=== PATIENT | female | born 1965 | race Hispanic/Latino ===

== ENCOUNTER 2023-06-18 07:13 | Day surgery (SDC) | payer OTHER ==
[2023-06-14 11:47] LABS: BASOPHILS # (AUTO) 0.04 K/uL (0.00-0.20); BASOPHILS % (AUTO) 0.4 % (0.0-5.0); EOSINOPHILS # (AUTO) 0.68 K/uL (0.00-0.70); EOSINOPHILS % (AUTO) 6.8 % (0.0-8.0); HEMATOCRIT 25.3 % (36-48); IMMATURE GRANULOCYTE ABSOLUTE 0.05 K/uL (0-1); LYMPHOCYTES # (AUTO) 2.7 K/uL (1.0-4.8); LYMPHOCYTES % (AUTO) 26.6 % (21.0-51.0); MEAN CORPUSCULAR HEMOGLOBIN 30.4 pg (27.0-33.0); MEAN CORPUSCULAR HGB CONC 30.8 g/dL (32.0-36.0); MEAN CORPUSCULAR VOLUME 98.4 fL (79-99); MONOCYTES # (AUTO) 0.5 K/uL (0.1-1.0); MONOCYTES % (AUTO) 4.6 % (3.0-13.0); NEUTROPHILS # (AUTO) 6.1 K/uL (1.8-7.7); NEUTROPHILS % (AUTO) 61.1 % (40.0-77.0); PLATELET COUNT (AUTO) 181 K/uL (130-400); RED BLOOD CELL COUNT(AUTO) 2.57 MIL/uL (4.00-5.50); RED CELL DISTRIBUTION WIDTH 15.3 % (11.0-15.5)
[2023-06-14 12:05] VITALS: BP 199/82; PULSE 95; RESP 16
[2023-06-14 12:11] LABS: INR < 0.93 (0.85-1.15); PROTHROMBIN TIME 10.1 SEC (9.6-11.6)
[2023-06-14 12:12] LABS: PARTIAL THROMBOPLASTIN TIME 32.3 SEC (26.3-35.5)
[2023-06-14 12:16] LABS: ALBUMIN 1.8 g/dL (3.5-5.0); BILIRUBIN,TOTAL 0.2 mg/dL (0.2-1.0); POTASSIUM 5.8 mmol/L (3.5-5.1); TOTAL PROTEIN, SERUM 6.1 g/dL (6.0-8.3)
[2023-06-14 12:33] LABS: CREATININE 8.6 mg/dL (0.5-1.5)
[2023-06-18] VITALS (17 sets, daily range): BP systolic 129–164; BP diastolic 42–95; PULSE 59–85; RESP 13–20
[~2023-06-18] VITALS: Ht 154.9 cm; Wt 99.2 kg
[~2023-06-18 07:13] MED LIST: AZIT500T4 PO; BENZ200C53 PO; FERR-72 PO; FOLI0.8T22 PO; FURO20TA4 PO; GLIM4TAB36 PO; IRON INFUSION IV; LISI40TA9 PO; SIMV-46 PO; SODI650T PO; VITAMIN B12 PO
[2023-06-18] MEDS ORDERED: CEFAZOLIN SODIUM 2 GM VIAL ONE (08:33)
[2023-06-18] MEDS ORDERED: BUPIVACAINE/PF 0.5% 10ML VIAL ONE ×2 (08:34→10:42)
[2023-06-18 08:50] LABS: POTASSIUM 5.2 mmol/L (3.5-5.1)
[2023-06-18 08:52] LABS: CREATININE 8.6 mg/dL (0.5-1.5)
[2023-06-18] MEDS ORDERED: MIDAZOLAM HCL 1 MG/ML 2ML VIAL ONE (10:06)
[2023-06-18] MEDS ORDERED: PROPOFOL 10 MG/ML 20ML VIAL IV ONE ×2 (10:07→11:48)
[2023-06-18] MEDS ORDERED: GLYCOPYRROLATE 1 MG/5 ML SYRINGE ONE (10:07)
[2023-06-18] MEDS ORDERED: LIDOCAINE PF 100MG/5ML (2%) SYRINGE 5ML ONE (10:07)
[2023-06-18] MEDS ORDERED: ROCURONIUM 10MG/1ML SYR 10 MG/ML ML ONE (10:08)
[2023-06-18] MEDS ORDERED: FENTANYL CITRATE PF 50 MCG/1 ML 2ML VIAL ONE (10:08)
[2023-06-18] MEDS ORDERED: ONDANSETRON 4MG INJ ONE (11:32)
[2023-06-18] MEDS ORDERED: NEOSTIGMINE 5MG/5ML SYR IV ONE (11:51)
[2023-06-20] MEDS ORDERED: GABA-529 PO (23:37)
[2023-06-20] MEDS ORDERED: TRAM50TA4 PO (23:37)
== END 2023-06-18 14:20 | disposition home or self-care (01) ==
LOC: DAH 07:13
PROVIDERS: ATTEND Student in an Organized Health Care Education/Training Program
DX: K42.9 Umbilical hernia without obstruction or gangrene (principal); D36.7 Benign neoplasm of other specified sites; I12.0 Hypertensive chronic kidney disease with stage 5 chronic kidney disease or end stage renal disease; E11.22 Type 2 diabetes mellitus with diabetic chronic kidney disease; N18.5 Chronic kidney disease, stage 5; E78.00 Pure hypercholesterolemia, unspecified; D64.9 Anemia, unspecified; S30.851A Superficial foreign body of abdominal wall, initial encounter; X58.XXXA Exposure to other specified factors, initial encounter; Y93.89 Activity, other specified; Y92.89 Other specified places as the place of occurrence of the external cause; Y99.8 Other external cause status; Z83.3 Family history of diabetes mellitus; Z80.59 Family history of malignant neoplasm of other urinary tract organ; Z79.84 Long term (current) use of oral hypoglycemic drugs; Z79.899 Other long term (current) drug therapy
CPT/HCPCS: 80053; 85025; 85610; 85730; 87426; 36415; 93005; 49591; 49999; A6260; 74018; 80048; 82948; 88300; 88302; C1760; C1781; J2001; J2250; J2405; J2704; J2710; J3010; J3490; A4215; A4221; A4222; A4223; A4649; A4663; A6204; C1713; C1750; C1769; G0168; J0665; J0690

== ENCOUNTER 2023-10-15 13:01 | Observation (INO) | payer OTHER ==
[~2023-10-15] VITALS: Ht 154.9 cm; Wt 87.1 kg
[2023-10-15] VITALS (13 sets, daily range): BP systolic 90–204; BP diastolic 42–92; PULSE 82–95; RESP 10–14; TEMP 98
[~2023-10-15 13:01] MED LIST changes: +GABA-529 PO; -IRON INFUSION IV; +TRAM50TA4 PO
[2023-10-15 14:16] LABS: BASOPHILS # (AUTO) 0.02 K/uL (0.00-0.20); BASOPHILS % (AUTO) 0.3 % (0.0-5.0); EOSINOPHILS # (AUTO) 0.36 K/uL (0.00-0.70); EOSINOPHILS % (AUTO) 5.3 % (0.0-8.0); HEMATOCRIT 31.5 % (36-48); IMMATURE GRANULOCYTE ABSOLUTE 0.03 K/uL (0-1); LYMPHOCYTES # (AUTO) 1.1 K/uL (1.0-4.8); LYMPHOCYTES % (AUTO) 16.1 % (21.0-51.0); MEAN CORPUSCULAR HEMOGLOBIN 32.9 pg (27.0-33.0); MEAN CORPUSCULAR HGB CONC 34.6 g/dL (32.0-36.0); MEAN CORPUSCULAR VOLUME 95.2 fL (79-99); MONOCYTES # (AUTO) 0.3 K/uL (0.1-1.0); MONOCYTES % (AUTO) 4.4 % (3.0-13.0); NEUTROPHILS % (AUTO) 73.5 % (40.0-77.0); PLATELET COUNT (AUTO) 143 K/uL (130-400); RED BLOOD CELL COUNT(AUTO) 3.31 MIL/uL (4.00-5.50); RED CELL DISTRIBUTION WIDTH 13.4 % (11.0-15.5); WHITE BLOOD COUNT (AUTO) 6.8 K/uL (4.8-10.8)
[2023-10-15 14:33] LABS: ALBUMIN 2.5 g/dL (3.5-5.0); BILIRUBIN,TOTAL 0.4 mg/dL (0.2-1.0); CREATININE 7.5 mg/dL (0.5-1.5); TOTAL PROTEIN, SERUM 6.7 g/dL (6.0-8.3)
[2023-10-15 14:44] LABS: POTASSIUM 6.2 mmol/L (3.5-5.1)
[2023-10-15] MEDS: NITROGLYCERIN 1GM OINT 1 INCH/1GM TD ONE (15:55)
[2023-10-15] MEDS: NA ZIRCON CYCLOSIL(LOKELMA 10GM) PO ONE (15:55)
[2023-10-15] MEDS: INSULIN HUMULIN R 100 UNIT/ML 3ML IV ONE (15:56)
[2023-10-15] MEDS: 0.9% NACL 500ML IV.SOLN 500 ML IV SCH (18:33)
[2023-10-15] MEDS: CEFTRIAXONE 1G VIAL IVPB SCH (18:35)
[2023-10-15] MEDS: 1/2 NS 1000ML 1,000 ML IV SCH (18:43)
[2023-10-15] MEDS: INSULIN REGULAR, HUMAN 3ML 100 UNIT in 0.9%NACL 100ML 99 ML IV PRN (22:08)
[2023-10-16] VITALS (8 sets, daily range): BP systolic 107–166; BP diastolic 62–94; PULSE 82–87; RESP 12–19; TEMP 98.3; O2SAT 99
[2023-10-16] MEDS: INSULIN HUMULIN R 100 UNIT/ML 3ML SQ SCH (07:30)
[2023-10-16] MEDS ORDERED: INSULIN HUMULIN R 100 UNIT/ML 3ML SQ SCH (07:30)
[2023-10-16 07:33] LABS: BASOPHILS # (AUTO) 0.05 K/uL (0.00-0.20); BASOPHILS % (AUTO) 0.6 % (0.0-5.0); EOSINOPHILS # (AUTO) 0.33 K/uL (0.00-0.70); EOSINOPHILS % (AUTO) 4.2 % (0.0-8.0); HEMATOCRIT 27.9 % (36-48); IMMATURE GRANULOCYTE ABSOLUTE 0.03 K/uL (0-1); LYMPHOCYTES # (AUTO) 2.2 K/uL (1.0-4.8); LYMPHOCYTES % (AUTO) 27.8 % (21.0-51.0); MEAN CORPUSCULAR HEMOGLOBIN 32.1 pg (27.0-33.0); MEAN CORPUSCULAR HGB CONC 34.8 g/dL (32.0-36.0); MEAN CORPUSCULAR VOLUME 92.4 fL (79-99); MONOCYTES # (AUTO) 0.4 K/uL (0.1-1.0); MONOCYTES % (AUTO) 4.5 % (3.0-13.0); NEUTROPHILS % (AUTO) 62.5 % (40.0-77.0); PLATELET COUNT (AUTO) 162 K/uL (130-400); RED BLOOD CELL COUNT(AUTO) 3.02 MIL/uL (4.00-5.50); RED CELL DISTRIBUTION WIDTH 13.6 % (11.0-15.5); WHITE BLOOD COUNT (AUTO) 7.9 K/uL (4.8-10.8)
[2023-10-16 07:46] LABS: ALBUMIN 2.1 g/dL (3.5-5.0); BILIRUBIN,TOTAL 0.3 mg/dL (0.2-1.0); CREATININE 4.7 mg/dL (0.5-1.5); POTASSIUM 3.9 mmol/L (3.5-5.1); TOTAL PROTEIN, SERUM 5.9 g/dL (6.0-8.3)
[2023-10-16] MEDS: CLONIDINE HCL 0.1 MG TABLET PO PRN (08:46)
[2023-10-16] MEDS ORDERED: TRAMADOL HCL 50 MG TABLET PO PRN (11:30)
[2023-10-16] MEDS ORDERED: NON-FORMULARY MEDICATION 1 EACH (Ferrous Sulfate 325 MG) PO SCH (14:00)
[2023-10-16 14:34] LABS: HEPATITIS B CORE AB TOTAL Non-Reactive (Nonreactive); HEPATITIS B SURFACE ANTIBODY Non-Reactive (Reactive); HEPATITIS B SURFACE ANTIGEN Non-Reactive (Nonreactive)
[2023-10-16] MEDS: FERROUS SULFATE 325 MG TABLET.DR PO SCH (14:55)
[2023-10-16] MEDS: SIMVASTATIN 20 MG TABLET PO SCH (20:41)
[2023-10-16] MEDS: SODIUM BICARBONATE 650 MG TAB PO SCH (20:41)
[2023-10-16] MEDS: FUROSEMIDE 20 MG TABLET PO SCH (20:42)
[2023-10-16] MEDS: LISINOPRIL 40 MG TABLET PO SCH (20:42)
[2023-10-16] MEDS ORDERED: NON-FORMULARY MEDICATION 1 EACH (Simvastatin 40 MG) PO SCH (21:00)
[2023-10-17] VITALS (21 sets, daily range): BP systolic 137–177; BP diastolic 66–91; PULSE 65–92; RESP 12–19; TEMP 97.9–98.2; O2SAT 97
[2023-10-17] MEDS ORDERED: NON-FORMULARY MEDICATION 1 EACH (Folic Acid/Vitamin B Comp W-C (Rena-Vite Tablet) 0.8 MG) PO SCH (09:00)
[2023-10-17] MEDS: Vitamin B Complex/Vit C/Folic Acid PO SCH (13:22)
[2023-10-17] MEDS: GLIMEPIRIDE 2 MG TABLET PO SCH (13:22)
[2023-10-17] MEDS: INSULIN GLARGINE 100 UNITS/ML 10 ML VIAL SQ ONE (13:23)
== END 2023-10-17 15:30 | disposition home or self-care (01) ==
LOC: EDH 13:01 → EDHIP 17:48 → WSH 10-16 15:05
PROVIDERS: ADMIT Internal Medicine; ATTEND Internal Medicine
DX: I12.0 Hypertensive chronic kidney disease with stage 5 chronic kidney disease or end stage renal disease (principal); E11.22 Type 2 diabetes mellitus with diabetic chronic kidney disease; N18.6 End stage renal disease; E11.65 Type 2 diabetes mellitus with hyperglycemia; E87.5 Hyperkalemia; E87.1 Hypo-osmolality and hyponatremia; D63.1 Anemia in chronic kidney disease; E78.5 Hyperlipidemia, unspecified; Z99.2 Dependence on renal dialysis; Z79.899 Other long term (current) drug therapy
CPT/HCPCS: 96376; 96365; 96366 ×2; 99285; 82947; 80053 ×2; 83880; 85025 ×2; 82948 ×15; 86706; 87340; 86704; 82010; 36415 ×2; 71045; 93005; 90935 ×2; 96372 ×2; 96367; G0378 ×39; J0696 ×2; J1815 ×4; G0257

== ENCOUNTER 2024-02-05 07:25 | Day surgery (SDC) | payer OTHER ==
[2024-02-04 13:35] LABS: HEMATOCRIT 34.3 % (36-48); MEAN CORPUSCULAR HEMOGLOBIN 32.7 pg (27.0-33.0); MEAN CORPUSCULAR HGB CONC 32.9 g/dL (32.0-36.0); MEAN CORPUSCULAR VOLUME 99.1 fL (79-99); RED BLOOD CELL COUNT(AUTO) 3.46 MIL/uL (4.00-5.50); RED CELL DISTRIBUTION WIDTH 14.5 % (11.0-15.5); WHITE BLOOD COUNT (AUTO) 6.9 K/uL (4.8-10.8)
[2024-02-04 13:58] LABS: CREATININE 9.7 mg/dL (0.5-1.0)
[2024-02-04 14:03] LABS: INR 0.96 (0.85-1.15); PARTIAL THROMBOPLASTIN TIME 25.9 SEC (26.3-35.5); PROTHROMBIN TIME 10.2 SEC (9.6-11.6)
[2024-02-04 14:18] VITALS: BP 194/84; PULSE 78; RESP 18
[2024-02-05] VITALS (18 sets, daily range): BP systolic 123–153; BP diastolic 52–78; PULSE 61–74; RESP 12–18
[~2024-02-05] VITALS: Ht 157.5 cm; Wt 92.8 kg
[~2024-02-05 07:25] MED LIST changes: -AZIT500T4 PO; +CALC0.5C11 PO; +CALC667C10 PO; +CETI10TA57 PO; +CLON0.1T PO; -GABA-529 PO; +OLME40TA70 PO; +SODI325T PO; -SODI650T PO; -VITAMIN B12 PO
[2024-02-05] MEDS ORDERED: CEFAZOLIN SODIUM 1 GM VIAL ONE (07:33)
[2024-02-05 08:22] LABS: POTASSIUM 5.2 mmol/L (3.5-5.1)
[2024-02-05] MEDS ORDERED: PROPOFOL 10 MG/ML 20ML VIAL IV ONE (08:23)
[2024-02-05] MEDS ORDERED: FENTANYL CITRATE PF 50 MCG/1 ML 2ML VIAL ONE (08:23)
[2024-02-05] MEDS ORDERED: LIDOCAINE PF 100MG/5ML (2%) SYRINGE 5ML ONE (08:23)
[2024-02-05] MEDS: CEFAZOLIN SODIUM 2 GM VIAL IVPB ONE ×2 (08:31)
[2024-02-05] MEDS ORDERED: ROCURONIUM BROMIDE 10MG/1ML 5ML VL ONE (08:33)
[2024-02-05] MEDS: CEFAZOLIN SODIUM 2 GM VIAL ONE (08:40)
[2024-02-05] MEDS: 0.9% NACL 500ML IV.SOLN 500 ML IV ONE (08:44)
[2024-02-05] MEDS ORDERED: HYDR25TA67 PO (08:52)
[2024-02-05] MEDS ORDERED: DAPA10TA PO (08:52)
[2024-02-05] MEDS ORDERED: BUPIVACAINE/PF 0.5% 30ML VIAL ONE (09:11)
[2024-02-05] MEDS ORDERED: LIDOCAINE HCL 1% 20 ML VIAL ONE (09:11)
[2024-02-05] MEDS ORDERED: SUGAMMADEX SODIUM 200 MG/2 ML VIAL IV ONE (09:13)
[2024-02-05] MEDS: ACETAMINOPHEN 1,000 MG/100 ML VIAL IV ONE (10:10)
== END 2024-02-05 12:15 | disposition home or self-care (01) ==
LOC: DAH 07:25
PROVIDERS: ATTEND Thoracic Surgery (Cardiothoracic Vascular Surgery)
DX: I12.0 Hypertensive chronic kidney disease with stage 5 chronic kidney disease or end stage renal disease (principal); E11.22 Type 2 diabetes mellitus with diabetic chronic kidney disease; N18.6 End stage renal disease; E78.5 Hyperlipidemia, unspecified; Z83.3 Family history of diabetes mellitus; Z83.79 Family history of other diseases of the digestive system; Z80.59 Family history of malignant neoplasm of other urinary tract organ; Z79.899 Other long term (current) drug therapy; Z98.890 Other specified postprocedural states
CPT/HCPCS: 71045; 80048 ×2; 85027; 85610; 85730; 86850; 86900; 86901; 36415 ×2; 93005; 36821; 82948 ×2; A6260; J0665; A4663; J7030; A4452; J7040; J3010; J0690 ×4; J3490; J2001; J2704; J1644; A6446; A6219; A4649 ×3; C1713 ×2; A4930; A4215; A4223; A4213; A4222; A4600; G0168

== ENCOUNTER 2024-02-15 04:26 | Emergency (ER) | payer OTHER ==
[~2024-02-15] VITALS: Ht 157.5 cm; Wt 88.0 kg
[~2024-02-15 04:26] MED LIST changes: -BENZ200C53 PO; +DAPA10TA PO; -FURO20TA4 PO; +HYDR25TA67 PO; -LISI40TA9 PO; -SODI325T PO; -TRAM50TA4 PO
[2024-02-15] MEDS: CLONIDINE HCL 0.2 MG TABLET PO ONE (05:10)
[2024-02-15 05:11] LABS: BASOPHILS # (AUTO) 0.05 K/uL (0.00-0.20); BASOPHILS % (AUTO) 0.7 % (0.0-5.0); EOSINOPHILS % (AUTO) 6.8 % (0.0-8.0); HEMATOCRIT 31.6 % (36-48); IMMATURE GRANULOCYTE ABSOLUTE 0.05 K/uL (0-1); LYMPHOCYTES # (AUTO) 2.7 K/uL (1.0-4.8); MEAN CORPUSCULAR HEMOGLOBIN 31.8 pg (27.0-33.0); MEAN CORPUSCULAR HGB CONC 33.2 g/dL (32.0-36.0); MEAN CORPUSCULAR VOLUME 95.8 fL (79-99); MONOCYTES # (AUTO) 0.5 K/uL (0.1-1.0); MONOCYTES % (AUTO) 6.1 % (3.0-13.0); NEUTROPHILS # (AUTO) 3.7 K/uL (1.8-7.7); NEUTROPHILS % (AUTO) 49.7 % (40.0-77.0); NUCLEATED RED BLOOD CELLS 0.3 % (0.0-0.19); PLATELET COUNT (AUTO) 169 K/uL (130-400); RED CELL DISTRIBUTION WIDTH 14.5 % (11.0-15.5); WHITE BLOOD COUNT (AUTO) 7.4 K/uL (4.8-10.8)
[2024-02-15 05:18] LABS: ALBUMIN 3.3 g/dL (3.5-5.0); BILIRUBIN,TOTAL 0.4 mg/dL (0.2-1.0); CREATININE 7.2 mg/dL (0.5-1.0); POTASSIUM 4.9 mmol/L (3.5-5.1); TOTAL PROTEIN, SERUM 7.7 g/dL (6.0-8.3)
[2024-02-15 06:38] VITALS: BP 142/53; PULSE 63; RESP 16; O2SAT 96
[2024-02-15] MEDS: INSULIN HUMULIN R 100 UNIT/ML 3ML IV ONE (06:42)
== END 2024-02-15 06:47 | disposition home or self-care (01) ==
LOC: EDH 04:26
DX: E11.65 Type 2 diabetes mellitus with hyperglycemia (principal); E11.22 Type 2 diabetes mellitus with diabetic chronic kidney disease; I12.0 Hypertensive chronic kidney disease with stage 5 chronic kidney disease or end stage renal disease; N18.6 End stage renal disease; D64.9 Anemia, unspecified; E78.00 Pure hypercholesterolemia, unspecified; E66.9 Obesity, unspecified; Z99.2 Dependence on renal dialysis; Z98.890 Other specified postprocedural states; Z79.899 Other long term (current) drug therapy; Z68.30 Body mass index [BMI] 30.0-30.9, adult
CPT/HCPCS: 99284; 96374; 84484; 80053; 85025; 82948; 36415; 93005; J1815

== ENCOUNTER 2024-03-17 18:56 | Emergency (ER) | payer OTHER ==
[~2024-03-17] VITALS: Ht 154.9 cm; Wt 90.7 kg
[2024-03-17] MEDS ORDERED: BUTA-271 PO (19:19)
[2024-03-17 19:28] VITALS: BP 150/67; PULSE 86; RESP 16; O2SAT 98
[2024-03-17] MEDS: ACETAMINOPHEN WITH CODEINE 1 TAB TAB PO ONE (19:31)
== END 2024-03-17 19:51 | disposition home or self-care (01) ==
LOC: EDH 18:56
DX: G44.209 Tension-type headache, unspecified, not intractable (principal); E11.9 Type 2 diabetes mellitus without complications; E78.00 Pure hypercholesterolemia, unspecified; I10 Essential (primary) hypertension; Z79.899 Other long term (current) drug therapy; Z98.890 Other specified postprocedural states

== ENCOUNTER 2024-03-25 12:48 | Emergency (ER) | payer OTHER ==
[~2024-03-25] VITALS: Ht 154.9 cm; Wt 35.4 kg
[~2024-03-25 12:48] MED LIST changes: -CALC667C10 PO; -CETI10TA57 PO
[2024-03-25 13:15] VITALS: BP 159/54; PULSE 78; RESP 16
[2024-03-25 15:12] LABS: BASOPHILS # (AUTO) 0.02 K/uL (0.00-0.20); BASOPHILS % (AUTO) 0.3 % (0.0-5.0); EOSINOPHILS # (AUTO) 0.27 K/uL (0.00-0.70); EOSINOPHILS % (AUTO) 3.9 % (0.0-8.0); HEMATOCRIT 32.3 % (36-48); IMMATURE GRANULOCYTE ABSOLUTE 0.03 K/uL (0-1); LYMPHOCYTES # (AUTO) 0.9 K/uL (1.0-4.8); LYMPHOCYTES % (AUTO) 13.4 % (21.0-51.0); MEAN CORPUSCULAR HGB CONC 33.1 g/dL (32.0-36.0); MEAN CORPUSCULAR VOLUME 99.7 fL (79-99); MONOCYTES # (AUTO) 0.5 K/uL (0.1-1.0); NEUTROPHILS # (AUTO) 5.2 K/uL (1.8-7.7); PLATELET COUNT (AUTO) 134 K/uL (130-400); RED BLOOD CELL COUNT(AUTO) 3.24 MIL/uL (4.00-5.50); WHITE BLOOD COUNT (AUTO) 6.9 K/uL (4.8-10.8)
[2024-03-25 15:38] LABS: ALBUMIN 2.8 g/dL (3.5-5.0); BILIRUBIN,TOTAL 0.3 mg/dL (0.2-1.0); CREATININE 7.3 mg/dL (0.5-1.0); POTASSIUM 4.3 mmol/L (3.5-5.1); TOTAL PROTEIN, SERUM 7.9 g/dL (6.0-8.3)
[2024-03-25] MEDS: INSULIN HUMULIN R 100 UNIT/ML 3ML IV ONE (15:42)
[2024-03-25 16:20] LABS: ABG BASE EXCESS -3.8 mmol/L (-2.0-3.0); ABG HCO3 20.4 mmol/L (21.0-28.0); ABG OXYGEN SATURATION 97.4 % (95.0-99.0); ABG PCO2 35 mmHg (32-45); ABG PH 7.385 (7.35-7.450); DEVICE COMMENT RR MARLEN FNP; PO2, ARTERIAL BG 97.8 mmHg (83.0-108.0); VENT MODE, BG RA (ROOM AIR)
[2024-03-25 16:29] LABS: APPEARANCE,URINE CLEAR (CLEAR); BILIRUBIN,URINE NEGATIVE (NEGATIVE); COLOR,URINE LIGHT-YELLOW (YELLOW); GLUCOSE, URINE (UA) >=1000 mg/dL (NEGATIVE); KETONES,URINE NEGATIVE (NEGATIVE); LEUKOCYTE ESTERASE ,URINE NEGATIVE Leu/uL (NEGATIVE); NITRATE,URINE NEGATIVE (NEGATIVE); OCCULT BLOOD,URINE SMALL (NEGATIVE); PROTEIN,URINE 600 mg/dL (NEGATIVE); UROBILINOGEN,URINE 0.2 mg/dL (0.2-1.0)
[2024-03-25 16:30] LABS: ADD UA MICROSCOPIC YES
[2024-03-25] MEDS: 0.9% NACL 500ML IV.SOLN 500 ML IV ONE (18:48)
[2024-03-25 19:09] LABS: BACTERIA,URINE RARE /HPF (None Seen); MUCUS,URINE RARE LPF (None Seen); NON-SQUAMOUS EPITHELIAL CELL 1 /HPF (0-2); SQUAMOUS EPITHELIAL CELL,UR MANY /HPF (0-2)
== END 2024-03-25 19:37 | disposition home or self-care (01) ==
LOC: EDH 12:48
DX: E11.65 Type 2 diabetes mellitus with hyperglycemia (principal); I12.0 Hypertensive chronic kidney disease with stage 5 chronic kidney disease or end stage renal disease; E11.22 Type 2 diabetes mellitus with diabetic chronic kidney disease; N18.6 End stage renal disease; Z99.2 Dependence on renal dialysis; E78.00 Pure hypercholesterolemia, unspecified; E87.1 Hypo-osmolality and hyponatremia; Z79.899 Other long term (current) drug therapy; Z98.890 Other specified postprocedural states
CPT/HCPCS: 99285; 96374; 71045; 80053; 82803; 85025; 87086; 82948 ×3; 82010; 81001; 36415; 93005; 36600; J1815; J7040

== ENCOUNTER 2024-04-11 02:23 | Inpatient (IN) | payer OTHER ==
[~2024-04-11] VITALS: Ht 154.9 cm; Wt 89.8 kg
[2024-04-11] VITALS (20 sets, daily range): BP systolic 144–206; BP diastolic 64–83; PULSE 64–84; RESP 14–19; TEMP 97.7–98.3; O2SAT 98
[2024-04-11 02:51] LABS: BASOPHILS # (AUTO) 0.05 K/uL (0.00-0.20); BASOPHILS % (AUTO) 0.6 % (0.0-5.0); HEMATOCRIT 30.1 % (36-48); IMMATURE GRANULOCYTE ABSOLUTE 0.03 K/uL (0-1); LYMPHOCYTES # (AUTO) 2.3 K/uL (1.0-4.8); LYMPHOCYTES % (AUTO) 29.2 % (21.0-51.0); MEAN CORPUSCULAR HEMOGLOBIN 32.6 pg (27.0-33.0); MEAN CORPUSCULAR HGB CONC 32.6 g/dL (32.0-36.0); MONOCYTES # (AUTO) 0.5 K/uL (0.1-1.0); MONOCYTES % (AUTO) 6.7 % (3.0-13.0); NEUTROPHILS # (AUTO) 4.7 K/uL (1.8-7.7); NEUTROPHILS % (AUTO) 58.1 % (40.0-77.0); PLATELET COUNT (AUTO) 181 K/uL (130-400); RED BLOOD CELL COUNT(AUTO) 3.01 MIL/uL (4.00-5.50); RED CELL DISTRIBUTION WIDTH 13.7 % (11.0-15.5)
[2024-04-11 03:04] LABS: CREATININE 7.6 mg/dL (0.5-1.0); POTASSIUM 4.9 mmol/L (3.5-5.1)
[2024-04-11] MEDS: LACTATED RINGERS 1000ML 1,000 ML IV ONE (04:03)
[2024-04-11] MEDS: morPHINE 4 MG SYG IVP ONE (06:14)
[2024-04-11] MEDS ORDERED: FERR-72 PO (06:44)
[2024-04-11] MEDS ORDERED: HYDR25TA67 PO (06:44)
[2024-04-11] MEDS ORDERED: DAPA10TA PO (06:44)
[2024-04-11] MEDS ORDERED: INSU100I26 SQ (06:44)
[2024-04-11] MEDS: DEXTROSE 5 %-0.45 % NACL 1,000 ML IV SCH ×2 (06:46→07:10)
[2024-04-11 07:04] LABS: CHOLESTEROL 153 mg/dL (<200); HDL CHOLESTEROL 55 mg/dL (35-85); LDL DIRECT 79 mg/dL (0-99); TRIGLYCERIDES 93 mg/dL (30-200)
[2024-04-11] MEDS: ondanSETRON 4MG INJ IVP PRN (12:07)
[2024-04-11] MEDS: HEParin 5,000 UNIT VIAL IRRIG SCH (16:00)
[2024-04-11] MEDS ORDERED: NON-FORMULARY MEDICATION 1 EACH (Simvastatin 40 MG) PO SCH (21:00)
[2024-04-11] MEDS: simVASTatin 20 MG TABLET PO SCH (22:23)
[2024-04-11] MEDS: hydroMORPHone 0.5 MG SYG (0.5MG/0.5ML) IVP PRN (22:27)
[2024-04-12] VITALS (7 sets, daily range): BP systolic 140–188; BP diastolic 69–79; PULSE 77–81; RESP 16–20; TEMP 98.1–98.3; O2SAT 98
[2024-04-12 08:05] LABS: POTASSIUM 4.8 mmol/L (3.5-5.1)
[2024-04-12] MEDS ORDERED: NON-FORMULARY MEDICATION 1 EACH (Glimepiride 4 MG) PO SCH (09:00)
[2024-04-12] MEDS ORDERED: INSULIN GLARGINE HUM REC ANLOG SQ SCH (09:00)
[2024-04-12] MEDS ORDERED: NON-FORMULARY MEDICATION 1 EACH (Ferrous Sulfate 325 MG) PO SCH (09:00)
[2024-04-12] MEDS ORDERED: OLMESARTAN MEDOXOMIL 40 MG PO SCH (09:00)
[2024-04-12] MEDS: INSULIN GLARgine 100 UNITS/ML 10 ML VIAL SQ SCH (09:00)
[2024-04-12] MEDS ORDERED: [UNRECOGNIZED DRUG - OTHER] SQ SCH (09:00)
[2024-04-12] MEDS ORDERED: NON-FORMULARY MEDICATION 1 EACH (Folic Acid/Vitamin B Comp W-C (Rena-Vite Tablet) 0.8 MG) PO SCH (09:00)
[2024-04-12] MEDS: CALCITRIOL 0.5 MCG PO SCH (09:00)
[2024-04-12] MEDS: GLIMEPIRIDE 2 MG TABLET PO SCH (09:00)
[2024-04-12] MEDS: LoSARTan 100 MG TABLET PO SCH (10:20)
[2024-04-12] MEDS: Vitamin B Complex/Vit C/Folic Acid PO SCH (10:21)
[2024-04-12] MEDS: hydrALAZine 25MG TABLET PO SCH (10:21)
[2024-04-12] MEDS: FERROUS SULFATE 325 MG TABLET.DR PO SCH (10:21)
[2024-04-12] MEDS: cloNIDine HCL 0.1 MG TABLET PO PRN (12:44)
[2024-04-12 14:35] LABS: HEPATITIS B SURFACE ANTIGEN Non-Reactive (Nonreactive)
[2024-04-12 14:43] LABS: HEPATITIS B CORE AB TOTAL Non-Reactive (Nonreactive); HEPATITIS C ANTIBODY Non-Reactive (Nonreactive)
[2024-04-12 14:44] LABS: HEPATITIS B SURFACE ANTIBODY Positive (Reactive)
[2024-04-13] VITALS (7 sets, daily range): BP systolic 141–186; BP diastolic 54–79; PULSE 70–83; RESP 16; TEMP 97.4–98.6; O2SAT 97–98
[2024-04-13] MEDS: acetaMINOPHEN WITH coDEINE 1 TAB TAB PO PRN (16:12)
[2024-04-13] MEDS: doCUSate SODIUM 100 MG CAP PO SCH (19:49)
[2024-04-13] MEDS: DEXTROSE 50%-WATER 50 ML DISP.SYRIN IV ONE (21:25)
[2024-04-14] VITALS (22 sets, daily range): BP systolic 152–178; BP diastolic 65–89; PULSE 65–79; RESP 14–20; TEMP 98–98.7; O2SAT 95–98
[2024-04-14] MEDS ORDERED: GLUCAGON 1MG KIT 1 MG ML IM PRN (02:00)
[2024-04-14] MEDS: DEXTROSE 50%-WATER 50 ML DISP.SYRIN IV PRN (05:11)
[2024-04-14 05:33] LABS: BASOPHILS # (AUTO) 0.02 K/uL (0.00-0.20); BASOPHILS % (AUTO) 0.3 % (0.0-5.0); EOSINOPHILS # (AUTO) 0.32 K/uL (0.00-0.70); EOSINOPHILS % (AUTO) 4.6 % (0.0-8.0); HEMATOCRIT 32.4 % (36-48); IMMATURE GRANULOCYTE ABSOLUTE 0.02 K/uL (0-1); LYMPHOCYTES # (AUTO) 2.8 K/uL (1.0-4.8); LYMPHOCYTES % (AUTO) 39.2 % (21.0-51.0); MEAN CORPUSCULAR HEMOGLOBIN 33.1 pg (27.0-33.0); MEAN CORPUSCULAR HGB CONC 32.4 g/dL (32.0-36.0); MEAN CORPUSCULAR VOLUME 102.2 fL (79-99); MONOCYTES # (AUTO) 0.5 K/uL (0.1-1.0); MONOCYTES % (AUTO) 7.3 % (3.0-13.0); NEUTROPHILS # (AUTO) 3.4 K/uL (1.8-7.7); NEUTROPHILS % (AUTO) 48.3 % (40.0-77.0); PLATELET COUNT (AUTO) 196 K/uL (130-400); RED BLOOD CELL COUNT(AUTO) 3.17 MIL/uL (4.00-5.50); RED CELL DISTRIBUTION WIDTH 14.1 % (11.0-15.5)
[2024-04-14] MEDS: DEXTROSE 5%-WATER 1,000 ML IV SCH (09:23)
[2024-04-14] MEDS: 0.9%NACL 1000ML 1,000 ML IV SCH (11:34)
[2024-04-14] MEDS: EPOETIN ALFA-EPBX (NON-ESRD) 10,000 UNIT/ML VIAL SQ SCH (19:51)
[2024-04-15] VITALS (8 sets, daily range): BP systolic 114–179; BP diastolic 71–87; PULSE 68–80; RESP 17–20; TEMP 97.8–98.8; O2SAT 95
[2024-04-15 05:27] LABS: CREATININE 6.9 mg/dL (0.5-1.0); POTASSIUM 5.1 mmol/L (3.5-5.1)
[2024-04-15] MEDS ORDERED: DEXTROSE 5 %-0.45 % NACL 1,000 ML IV SCH (07:30)
[2024-04-15] MEDS: LACTULOSE 20 GM/30 ML UDCUP PO SCH (09:45)
[2024-04-15] MEDS ORDERED: acetaMINOPHEN 325 MG TAB PO PRN (13:00)
[2024-04-15 15:16] LABS: ALBUMIN 2.9 g/dL (3.5-5.0); BILIRUBIN,DIRECT 0.1 mg/dL (0.0-0.3); BILIRUBIN,TOTAL 0.5 mg/dL (0.2-1.0)
[2024-04-16] VITALS (38 sets, daily range): BP systolic 110–181; BP diastolic 43–91; PULSE 69–91; RESP 14–19; TEMP 97.3–98.4; O2SAT 95–97
[2024-04-16] MEDS: 0.9%NACL 1000ML 1,000 ML IV ONE (06:07)
[2024-04-16 06:12] LABS: BASOPHILS # (AUTO) 0.05 K/uL (0.00-0.20); BASOPHILS % (AUTO) 0.5 % (0.0-5.0); EOSINOPHILS # (AUTO) 0.53 K/uL (0.00-0.70); EOSINOPHILS % (AUTO) 5.7 % (0.0-8.0); HEMATOCRIT 36.4 % (36-48); IMMATURE GRANULOCYTE ABSOLUTE 0.03 K/uL (0-1); LYMPHOCYTES # (AUTO) 2.6 K/uL (1.0-4.8); LYMPHOCYTES % (AUTO) 27.7 % (21.0-51.0); MEAN CORPUSCULAR HEMOGLOBIN 33.4 pg (27.0-33.0); MEAN CORPUSCULAR VOLUME 101.4 fL (79-99); MONOCYTES # (AUTO) 0.6 K/uL (0.1-1.0); MONOCYTES % (AUTO) 6.4 % (3.0-13.0); NEUTROPHILS # (AUTO) 5.5 K/uL (1.8-7.7); NEUTROPHILS % (AUTO) 59.4 % (40.0-77.0); PLATELET COUNT (AUTO) 245 K/uL (130-400); RED BLOOD CELL COUNT(AUTO) 3.59 MIL/uL (4.00-5.50); RED CELL DISTRIBUTION WIDTH 14.7 % (11.0-15.5); WHITE BLOOD COUNT (AUTO) 9.3 K/uL (4.8-10.8)
[2024-04-16 06:24] LABS: ALBUMIN 3.5 g/dL (3.5-5.0); BILIRUBIN,TOTAL 0.6 mg/dL (0.2-1.0); POTASSIUM 4.3 mmol/L (3.5-5.1)
[2024-04-16 06:29] LABS: CREATININE 8.6 mg/dL (0.5-1.0)
[2024-04-16] MEDS: LACTULOSE 20 GM/30 ML UDCUP PO SCH (09:00)
[2024-04-16] MEDS ORDERED: proPOFol 10 MG/ML 20ML VIAL IV ONE (10:26)
[2024-04-16] MEDS ORDERED: LIDOCAINE HCL 400MG/20ML VIAL ONE (10:26)
[2024-04-16] MEDS: DEXTROSE 50%-WATER 50 ML DISP.SYRIN IV ONE (11:21)
[2024-04-17 03:59] VITALS: BP 152/61; PULSE 84; RESP 17; TEMP 98.2
[2024-04-17 04:38] LABS: HEMATOCRIT 29.1 % (36-48); MEAN CORPUSCULAR HEMOGLOBIN 33.4 pg (27.0-33.0); MEAN CORPUSCULAR VOLUME 101.4 fL (79-99); RED BLOOD CELL COUNT(AUTO) 2.87 MIL/uL (4.00-5.50); RED CELL DISTRIBUTION WIDTH 14.7 % (11.0-15.5); WHITE BLOOD COUNT (AUTO) 5.5 K/uL (4.8-10.8)
[2024-04-17 04:47] LABS: CREATININE 6.1 mg/dL (0.5-1.0); POTASSIUM 4.3 mmol/L (3.5-5.1)
[2024-04-17 08:10] VITALS: BP 144/60; PULSE 86; RESP 20; TEMP 97.8
[2024-04-17 08:57] VITALS: O2SAT 96
[2024-04-17 11:10] VITALS: BP 162/66; PULSE 97; RESP 20; TEMP 97.6
== END 2024-04-17 13:42 | disposition home or self-care (01) | DRG 438 ==
LOC: EDH 02:23 → EDHIP 06:31 → 3AH 08:00
PROVIDERS: ADMIT Internal Medicine; ATTEND Internal Medicine
PROC: 0DB68ZX Excision of Stomach, Via Natural or Artificial Opening Endoscopic, Diagnostic (ICD-10-PCS; principal; 2024-04-16)
DX: K85.90 Acute pancreatitis without necrosis or infection, unspecified (principal); N18.6 End stage renal disease; E87.1 Hypo-osmolality and hyponatremia; I12.0 Hypertensive chronic kidney disease with stage 5 chronic kidney disease or end stage renal disease; E11.22 Type 2 diabetes mellitus with diabetic chronic kidney disease; D63.1 Anemia in chronic kidney disease; E78.00 Pure hypercholesterolemia, unspecified; E11.649 Type 2 diabetes mellitus with hypoglycemia without coma; I25.10 Atherosclerotic heart disease of native coronary artery without angina pectoris; K59.00 Constipation, unspecified; E66.01 Morbid (severe) obesity due to excess calories; K29.50 Unspecified chronic gastritis without bleeding; Z99.2 Dependence on renal dialysis; Z90.49 Acquired absence of other specified parts of digestive tract; Z82.49 Family history of ischemic heart disease and other diseases of the circulatory system; Z83.3 Family history of diabetes mellitus; Z68.37 Body mass index [BMI] 37.0-37.9, adult
CPT/HCPCS: 36415; 43239; 74176; 76705; 80048; 80053; 80061; 80076; 82948; 83690; 83880; 85025; 85027; 86704; 86706; 86803; 87340; 88305; 88312; 90935; 96365; 96375; G0378; J1170; J1644; J2270; J2405; J2704; J3490; J7030; J7042; J7070; J7120; A4620; A7002; Q5106

== ENCOUNTER 2024-08-03 20:43 | Emergency (ER) | payer OTHER ==
[~2024-08-03] VITALS: Ht 154.9 cm; Wt 92.5 kg
[~2024-08-03 20:43] MED LIST changes: +INSU100I26 SQ
--- NOTE | 2024-08-03 21:42 | HMCIMG ---
CT HEAD/BRAIN W/O CONTRAST HISTORY: Headaches COMPARISON: None TECHNIQUE: Multiple sequential axial images of the head were obtained from the base of the skull through vertex. Patient was not given contrast through intravenous route. FINDINGS: The ventricles and extraventricular CSF spaces are dilated consistent with cerebral atrophy. Nonspecific white matter changes seen. Dystrophic calcifications are seen in the right parietal lobe. There is no midline shift, mass effect or herniation. No acute intracranial bleed is seen. Visualized portion of the paranasal sinuses are grossly within normal limits. IMPRESSION: 1. No acute intracranial bleed is seen. 2. Atrophy with white matter changes. CT was performed with one or more following dose reduction techniques: automated exposure control, adjustment of the mA and kv according to patient's size, or use of a iterative reconstruction technique.
--- NOTE | 2024-08-03 22:31 | ERN ---
ED Note History of Present Illness Stated Complaint: HEADACHE Chief Complaint: Headache Time Seen by MD: 20:58 Time Seen by Midlevel: 20:58 Dictation: The patient is a 59-year-old female with a history of ESRD on dialysis, hyperlipidemia, hypertension who presents to the emergency department with a frontal headache onset 5:00 p.m. after dialysis. Patient reports she gets heada ches3 times a week usually after dialysis. Patient of Dr. Gomez. Patient denies any head trauma, nausea or vomiting, fevers. Patient reports she had a similar episodes a few months ago and was prescribed Fiorinal which helped for her headaches but has run out of prescription. Allergies: Coded Allergies: No Known Drug Allergies (Unverified Allergy, Unknown, 06/14/23) Home Meds Reported Medications Insulin Glargine,Hum.rec.anlog (Basaglar Kwikpen U-100) 100 Unit/Ml (3 Ml) Insuln.pen, 50 UNITS SQ DAILY 04/11/24 Hydralazine HCl (Hydralazine HCl) 25 Mg Tablet, 25 MG PO DAILY, TAB 04/11/24 Dapagliflozin Propanediol (Farxiga) 10 Mg Tablet, 10 MG PO DAILY, TAB 04/11/24 Ferrous Sulfate (Ferrous Sulfate) 325 Mg (65 Mg Iron) Tablet, 325 MG PO DAILY, TAB 04/11/24 Dapagliflozin Propanediol (Farxiga) 10 Mg Tablet, 10 MG PO HS, TAB 02/05/24 Hydralazine HCl (Hydralazine HCl) 25 Mg Tablet, 25 MG PO TID, TAB 02/05/24 Olmesartan Medoxomil (Benicar) 40 Mg Tablet, 40 MG PO DAILY, TAB 11/25/23 Clonidine HCl (Clonidine HCl) 0.1 Mg Tablet, 0.1 MG PO QIDP PRN for IF SBP GREATER THAN 180, TAB 11/25/23 Calcitriol (Calcitriol) 0.5 Mcg Capsule, 0.5 MCG PO DAILY, CAP 11/25/23 Folic Acid/Vitamin B Comp W-C (Ryanne-Jeane Tablet) 0.8 Mg Tablet, 0.8 MG PO DAILY, TAB 06/14/23 Glimepiride (Glimepiride) 4 Mg Tablet, 4 MG PO AM, TAB 06/14/23 Ferrous Sulfate (Ferrous Sulfate) 325 Mg (65 Mg Iron) Tablet, 325 MG PO TID, TAB 06/14/23 Simvastatin (Simvastatin) 40 Mg Tablet, 40 MG PO HS, TAB 06/14/23 Past Medical History Past Medical History: Diabetes-Type II, High Cholesterol, Heart Disease, Hypertension, Renal Disese, Renal Failure Surgical History: Cholecystectomy Surgical History Other: HERNIA REPAIR, PORT-A-CATH History: Not Applicable RN Note Reviewed/Agreed w/PFSH: Yes Review of System Dictation Constitutional: Negative for fever,chills, and weight loss Eyes: Negative for injury, pain,redness, and discharge ENT: Negative for injury,pain or swelling Cardiovascular: Negative for chest pain, palpitations, and edema Respiratory: Negative for shortness of breath, cough, and wheezing, Abdomen/GI: Negative for abdominal pain, nausea, vomiting, diarrhea, and constipation Back: Negative for injury and pain : Negative for injury, bleeding and discharge MS/Extremity: Negative for injury and deformity Skin: Negative for rash, and discoloration Neuro: Negative for weakness, numbness, tingling, and seizure positive for headache Psych: Negative for suicide ideation, homicidal ideation, and hallucinations Initial Vital Sign VS Vital Signs Date Time Temp Pulse Resp B/P (MAP) Pulse Ox O2 Delivery O2 Flow Rate FiO2 08/03/24 20:44 97.2 90 20 171/70 98 Room Air 08/03/24 23:05 0 21 Physical Exam Dictation Vital Signs reviewed General Appearance: Alert, oriented x 3, no acute distress, well developed, nourished. Head and Face: non-traumatic. Eyes: PERRL, pink conjunctivas, eyelid no trauma, anterior chamber with arcus senilis. Ears: Pinnas intact and no signs of trauma or erythema ear canals clear and no discharge TM no erythema Nose: No discharge, no bleeding. Oropharynx: Mouth normal, tongue pink. pharynx clear,no erythema, tonsils no exudates, no abscesses noted, mucous membrane moist Neck: Supple, non-tender, no thyromegaly, no masses, no JVD, no bruits Breast:Deferred Chest:No tenderness, no crepitus, no paradoxical movement, no retractions Lungs:Clear, well-ventilated, symmetric, no rales, no wheezing, no rhonchi, no stridor, good breath sounds bilaterally Heart: Regular rate, regular rhythm, no murmur, no gallops Vascular: no peripheral edema, Abdomen: Soft, positive bowel sounds, nondistended, no guarding, nontender, no rebound, no masses no hepatomegaly, no splenomegaly, no Pathak's sign, no hernias. Rectal: Deferred Genital: Deferred Neurological: Normal speech, motor function intact, sensory function intact , no facial droop no slurred speech, upper extremities equal and strength, lower extremities equal and strength Musculoskeletal: Neck nontender, full range of motion, back nontender, full range of motion, Extremities: nontender, full range of motion Skin: Color pink, dry, no turgor, no rash, no lacerations, no abrasions, no contusions. Lymphatic: Deferred Results (Laboratory/Radiology) Laboratory/Radiology Laboratory Tests Test 08/03/24 22:17 White Blood Count 7.1 K/uL (4.8-10.8) Red Blood Count 3.46 MIL/uL (4.00-5.50) L Hemoglobin 12.1 g/dL (12.0-16.0) Hematocrit 35.6 % (36-48) L Mean Corpuscular Volume 102.9 fL (79-99) H Mean Corpuscular Hemoglobin 35.0 pg (27.0-33.0) H Mean Corpuscular Hemoglobin Concent 34.0 g/dL (32.0-36.0) Red Cell Distribution Width 14.6 % (11.0-15.5) Platelet Count 176 K/uL (130-400) Mean Platelet Volume 11.0 fL (7.5-10.5) H Immature Granulocyte % (Auto) 0.3 % (0-1) Neutrophils (%) (Auto) 57.0 % (40.0-77.0) Lymphocytes (%) (Auto) 29.8 % (21.0-51.0) Monocytes (%) (Auto) 7.0 % (3.0-13.0) Eosinophils (%) (Auto) 5.2 % (0.0-8.0) Basophils (%) (Auto) 0.7 % (0.0-5.0) Neutrophils # (Auto) 4.1 K/uL (1.8-7.7) Lymphocytes # (Auto) 2.1 K/uL (1.0-4.8) Monocytes # (Auto) 0.5 K/uL (0.1-1.0) Eosinophils # (Auto) 0.37 K/uL (0.00-0.70) Basophils # (Auto) 0.05 K/uL (0.00-0.20) Absolute Immature Granulocyte (auto 0.02 K/uL (0-1) Nucleated Red Blood Cells 0.0 % (0.0-0.19) Sodium Level 133 mmol/L (136-145) L Potassium Level 4.6 mmol/L (3.5-5.1) Chloride Level 92 mmol/L (101-111) L Carbon Dioxide Level 33 mmol/L (21-32) H Blood Urea Nitrogen 38 mg/dL (7-18) H Creatinine 5.6 mg/dL (0.5-1.0) H Glomerular Filtration Rate Calc 8 mL/min (>90) Random Glucose 280 mg/dL (70-105) H Total Calcium 8.7 mg/dL (8.5-10.1) REASON: headache ORDERING PHYSICIAN: GINI TURPIN PROCEDURE: HEAD WO - CT HEAD/BRAIN W/O CONTRAST CT HEAD/BRAIN W/O CONTRAST HISTORY: Headaches COMPARISON: None TECHNIQUE: Multiple sequential axial images of the head were obtained from the base of the skull through vertex. Patient was not given contrast through intravenous route. FINDINGS: The ventricles and extraventricular CSF spaces are dilated consistent with cerebral atrophy. Nonspecific white matter changes seen. Dystrophic calcifications are seen in the right parietal lobe. There is no midline shift, mass effect or herniation. No acute intracranial bleed is seen. Visualized portion of the paranasal sinuses are grossly within normal limits. IMPRESSION: 1. No acute intracranial bleed is seen. 2. Atrophy with white matter changes. CT was performed with one or more following dose reduction techniques: automated exposure control, adjustment of the mA and kv according to patient's size, or use of a iterative reconstruction technique. Labs Reviewed?: Yes ED Course ED Course Orders Procedure Category Date Status Time Cbc With Differential LAB 08/03/24 Complete 21:17 Basic Metabolic Panel LAB 08/03/24 Complete 21:17 Ct Head/Brain W/O CT 08/03/24 Resulted Contrast 21:17 Acetaminophen 500mg PHA 08/03/24 Complete Tab (Tylenol 500mg T 21:30 Current Medications Medications (Trade) Dose Ordered Sig/Rafi Route PRN Reason Start Time Stop Time Status Last Admin Dose Admin Acetaminophen (TYLenol 500MG TAB) 1,000 mg ONCE ONCE PO 08/03/24 21:30 08/03/24 21:31 DC 08/03/24 23:04 Vital Signs Date Time Temp Pulse Resp B/P (MAP) Pulse Ox O2 Delivery O2 Flow Rate FiO2 08/03/24 23:05 98.4 76 17 153/70 98 Room Air* 0 21 08/03/24 20:44 97.2 90 20 171/70 98 Room Air Medical Decision Making [facility] The patient is a 59-year-old female with a history of ESRD on dialysis, hyperlipidemia, hypertension who presents to the emergency department with a frontal headache onset 5:00 p.m. after dialysis. Patient reports she gets headaches3 times a week usually after dialysis. Patient of Dr. Gomez. Patient denies any head trauma, nausea or vomiting, fevers. Patient reports she had a similar episodes a few months ago and was prescribed Fiorinal which helped for her headaches but has run out of prescription. CBC showed no leukocytosis, no anemia, chemistry showed mild hyponatremia, hypochloremia, elevated blood glucose no DKA. Patient reports she is pending to take her night diabetic medication. CT with no acute intracranial bleeding. Patient will be discharged to follow up with PCP. Patient in no acute distress. Remains neurologically intact. Differential diagnosis: Electrolyte imbalance, dehydration, intracerebral hemorrhage Need for hospitalization: Patient does not meet criteria for hospitalization. There are no social concerns with this patient. DX & DISP Disposition: Discharge Departure Impression: Primary Impression: Acute tension headache Additional Impressions: Uncontrolled diabetes mellitus with hyperglycemia, Hyponatremia, Hypochloremia, ESRD (end stage renal disease) Condition: Stable Scripts Butalb/Acetaminophen/Caffeine (Gfubkp-Quubpjcd-Tjmk 50-325-40) 50 Mg-325 Mg-40 Mg Tablet 1-2 TAB PO Q4HPRN PRN for HEADACHE, #15 TAB 0 Refills Max 6 tablets per 24 hrs. Prov: GINI TURPIN MANAGER MONITORING 08/03/24 Additional Instructions: Please follow up with your primary doctor in 1-2 days. If symptoms worsen pl ease return to ER. FOLLOW-UP WITH PRIMARY CARE PROVIDER IN 1 TO 2 DAYS. TAKE MEDICATIONS DIRECTED HERE IN THE EMERGENCY ROOM. OKAY TO CONTINUE HOME MEDICATIONS UNLESS OTHERWISE DISCUSSED DURING YOUR VISIT IN THE EMERGENCY ROOM TODAY. RETURN TO YOUR NEAREST EMERGENCY ROOM IF SYMPTOMS WORSEN OR IF THERE IS NO IMPROVEMENT. CALL 911 IF YOU NEED IMMEDIATE ASSISTANCE. TAKE TYLENOL [id number] NEEDED AND IF NO CONTRAINDICATIONS ARE PRESENT. INCREASE ORAL HYDRATION. A WOUND CULTURE OR URINE CULTURE WAS ORDERED HERE IN THE EMERGENCY ROOM DEPARTMENT PLEASE FOLLOW-UP WITH PRIMARY CARE PROVIDER AND ADVISE THEM TO GET REPEAT PORTS FROM OUR FACILITY. IF YOU HAD ANY ALMAZ WRAP/SPLINTS THAT WERE APPLIED HERE, PLEASE DO NOT REMOVE THEM UNTIL YOU SEE YOUR PRIMARY CARE OR SPECIALTY. Referrals: ALECIA BALL MD (PCP) Time of Disposition: 23:46 I have reviewed the case, and I agree with, Diagnosis and Plan GINI TURPIN MANAGER MONITORING Aug 03, 2024 22:31
[2024-08-03 22:32] LABS: BASOPHILS # (AUTO) 0.05 K/uL (0.00-0.20); BASOPHILS % (AUTO) 0.7 % (0.0-5.0); EOSINOPHILS # (AUTO) 0.37 K/uL (0.00-0.70); EOSINOPHILS % (AUTO) 5.2 % (0.0-8.0); HEMATOCRIT 35.6 % (36-48); IMMATURE GRANULOCYTE ABSOLUTE 0.02 K/uL (0-1); LYMPHOCYTES # (AUTO) 2.1 K/uL (1.0-4.8); LYMPHOCYTES % (AUTO) 29.8 % (21.0-51.0); MEAN CORPUSCULAR VOLUME 102.9 fL (79-99); MONOCYTES # (AUTO) 0.5 K/uL (0.1-1.0); NEUTROPHILS # (AUTO) 4.1 K/uL (1.8-7.7); PLATELET COUNT (AUTO) 176 K/uL (130-400); RED BLOOD CELL COUNT(AUTO) 3.46 MIL/uL (4.00-5.50); RED CELL DISTRIBUTION WIDTH 14.6 % (11.0-15.5); WHITE BLOOD COUNT (AUTO) 7.1 K/uL (4.8-10.8)
--- NOTE | 2024-08-03 22:50 | NUR ---
Assumed care at this time.
[2024-08-03 22:53] LABS: CREATININE 5.6 mg/dL (0.5-1.0); POTASSIUM 4.6 mmol/L (3.5-5.1)
[2024-08-03] MEDS: acetaMINOPHEN 500 MG TABLET PO ONE (23:04)
[2024-08-03 23:05] VITALS: BP 153/70; PULSE 76; RESP 17; TEMP 98.5; O2SAT 98
--- NOTE | 2024-08-03 23:10 | NUR ---
Patient reports headache, usually occurs after dialysis and she takes hydrocodone but she ran out. No other symptoms reported. GCS 15, no neuro defecits reported.
[2024-08-03] MEDS ORDERED: BUTA-256 PO ×2 (23:43→23:46)
== END 2024-08-03 23:54 | disposition home or self-care (01) ==
LOC: EDH 20:43
DX: I12.0 Hypertensive chronic kidney disease with stage 5 chronic kidney disease or end stage renal disease (principal); E11.22 Type 2 diabetes mellitus with diabetic chronic kidney disease; N18.6 End stage renal disease; G44.209 Tension-type headache, unspecified, not intractable; E11.65 Type 2 diabetes mellitus with hyperglycemia; E87.1 Hypo-osmolality and hyponatremia; E78.00 Pure hypercholesterolemia, unspecified; Z99.2 Dependence on renal dialysis; Z79.4 Long term (current) use of insulin; Z79.84 Long term (current) use of oral hypoglycemic drugs; Z79.899 Other long term (current) drug therapy; Z90.49 Acquired absence of other specified parts of digestive tract; Z98.890 Other specified postprocedural states
CPT/HCPCS: 36415; 70450; 80048; 85025; 99284

== ENCOUNTER 2024-10-22 23:38 | Emergency (ER) | payer OTHER ==
[~2024-10-22] VITALS: Ht 154.9 cm; Wt 96.2 kg
[~2024-10-22 23:38] MED LIST changes: +BUTA-256 PO
[2024-10-22 23:40] VITALS: TEMP 97.2
--- NOTE | 2024-10-23 01:14 | NUR ---
ASSUMED PT CARE AT THIS TIME.
--- NOTE | 2024-10-23 01:16 | NUR ---
PT TO CT AT THIS TIME.
--- NOTE | 2024-10-23 01:25 | NUR ---
PT BACK FROM CT AT THIS TIME.
--- NOTE | 2024-10-23 02:08 | HMCIMG ---
CT HEAD/BRAIN W/O CONTRAST HISTORY: Headache COMPARISON: None TECHNIQUE: Multiple sequential axial images of the head were obtained from the base of the skull through vertex. Patient was not given contrast through intravenous route. FINDINGS: The ventricles and extraventricular CSF spaces are dilated consistent with cerebral atrophy. Nonspecific white matter changes seen. There is no midline shift, mass effect or herniation. No acute intracranial bleed is seen. Visualized portion of the paranasal sinuses are grossly within normal limits. IMPRESSION: 1. No acute intracranial bleed is seen. 2. Atrophy with white matter changes. CT was performed with one or more following dose reduction techniques: automated exposure control, adjustment of the mA and kv according to patient's size, or use of a iterative reconstruction technique.
--- NOTE | 2024-10-23 02:30 | ERN ---
General Chief Complaint: Headache Stated Complaint: HEADACHE Time Seen by MD: 00:29 Time Seen by Midlevel: 00:29 Source: patient History of Present Illness Initial Comments Patient is a 59-year-old female with a past medical history of type 2 diabetes, hypertension, and end-stage renal disease on hemodialysis presenting to the emergency department for evaluation of a frontal headache that started this morning has progressively worsened throughout the day. Patient states she was not been able to sleep and believes this is contributing to her headache. Patient is a dialysis patient with a Sunday dialysis schedule. She had dialysis today and had3 L removed. She has been taking Tylenol with little to no relief. Allergies: Coded Allergies: No Known Drug Allergies (Unverified Allergy, Unknown, 06/14/23) Home Meds Active Scripts Butalb/Acetaminophen/Caffeine (Yrghwa-Wlqilqrd-Fuei 50-325-40) 50 Mg-325 Mg-40 Mg Tablet, 1-2 TAB PO Q4HPRN PRN for HEADACHE, #15 TAB 0 Refills Max 6 tablets per 24 hrs. Prov:GINI TURPIN BUFFET WAITER/WAITRESS 08/03/24 Reported Medications Insulin Glargine,Hum.rec.anlog (Basaglar Kwikpen U-100) 100 Unit/Ml (3 Ml) Insuln.pen, 50 UNITS SQ DAILY 04/11/24 Hydralazine HCl (Hydralazine HCl) 25 Mg Tablet, 25 MG PO DAILY, TAB 04/11/24 Dapagliflozin Propanediol (Farxiga) 10 Mg Tablet, 10 MG PO DAILY, TAB 04/11/24 Ferrous Sulfate (Ferrous Sulfate) 325 Mg (65 Mg Iron) Tablet, 325 MG PO DAILY, TAB 04/11/24 Dapagliflozin Propanediol (Farxiga) 10 Mg Tablet, 10 MG PO HS, TAB 02/05/24 Hydralazine HCl (Hydralazine HCl) 25 Mg Tablet, 25 MG PO TID, TAB 02/05/24 Olmesartan Medoxomil (Benicar) 40 Mg Tablet, 40 MG PO DAILY, TAB 11/25/23 Clonidine HCl (Clonidine HCl) 0.1 Mg Tablet, 0.1 MG PO QIDP PRN for IF SBP GREATER THAN 180, TAB 11/25/23 Calcitriol (Calcitriol) 0.5 Mcg Capsule, 0.5 MCG PO DAILY, CAP 11/25/23 Folic Acid/Vitamin B Comp W-C (Ryanne-Jeane Tablet) 0.8 Mg Tablet, 0.8 MG PO DAILY, TAB 06/14/23 Glimepiride (Glimepiride) 4 Mg Tablet, 4 MG PO AM, TAB 06/14/23 Ferrous Sulfate (Ferrous Sulfate) 325 Mg (65 Mg Iron) Tablet, 325 MG PO TID, TAB 06/14/23 Simvastatin (Simvastatin) 40 Mg Tablet, 40 MG PO HS, TAB 06/14/23 Past Medical History Past Medical History: Diabetes-Type II, Hypertension Past Surgical History: Cholecystectomy, LAVA Surgical History Other: HERNIA REPAIR, PORT-A-CATH Female( History) History: Not Applicable ROS Dictation CONSTITUTIONAL: Negative except for HPI HEAD/FACE: Negative except for HPI EENT: Negative except for HPI RESPIRATORY: Negative except for HPI GASTROINTESTINAL/ABDOMINAL: Negative except for HPI GENITOURINARY: Negative except for HPI MUSCULOSKELETAL: Negative except for HPI INTEGUMENTARY: Negative except for HPI NEUROLOGICAL/PSYCH: Negative except for HPI HEMATOLOGIC/LYMPHATIC: Negative except for HPI All Systems Negative, Except as noted above. 13 point review of systems assessed and all negative except for above. Physical Exam Physical Exam Dictation Vital Signs reviewed General Appearance: Alert, oriented x 3, no acute distress, well developed, nourished. Head and Face: non-traumatic. Eyes: PERRL, pink conjunctivas, eyelid no trauma, anterior chamber with arcus senilis. Ears: Pinnas intact and no signs of trauma or erythema ear canals clear and no discharge TM no erythema Nose: No discharge, no bleeding. Oropharynx: Mouth normal, tongue pink, pharynx clear,no erythema, tonsils no exudates, no abscesses noted, mucous membrane moist Neck: Supple, non-tender, no thyromegaly, no masses, no JVD, no bruits Breast:Deferred Chest:No tenderness, no crepitus, no paradoxical movement, no retractions Lungs:Clear, well-ventilated, symmetric, no rales, no wheezing, no rhonchi, no stridor, good breath sounds bilaterally Heart: Regular rate, regular rhythm, no murmur, no gallops Vascular: no peripheral edema, Abdomen: Soft, positive bowel sounds, nondistended, no guarding, nontender, no rebound, no masses no hepatomegaly, no splenomegaly, no Pathak's sign, no hernias. Rectal: Deferred Genital: Deferred Neurological: Normal speech, motor function intact, sensory function intact Musculoskeletal: Neck nontender, full range of motion, back nontender, full range of motion, Extremities: nontender, full range of motion Skin: Color pink, dry, no turgor, no rash, no lacerations, no abrasions, no contusions. Lymphatic: Deferred MDM MDM: Patient is a 59-year-old female with a past medical history of type 2 diabe christen, hypertension, and end-stage renal disease on hemodialysis presenting to the emergency department for evaluation of a frontal headache that started this morning has progressively worsened throughout the day. Patient states she was not been able to sleep and believes this is contributing to her headache. Patient is a dialysis patient with a Sunday dialysis schedule. She had dialysis today and had3 L removed. She has been taking Tylenol with little to no relief. On physical examination the patient is in no acute distress. Her initial vital signs are stable. Neurological examination is unremarkable. The patient has a GCS of 15. Given persistent headache the patient underwent a CT scan of the head to rule out any acute intracranial abnormality. However, CT scan does not show any acute intracranial abnormality. The patient was reassessed after CT scan was performed in on repeat examination the patient is sleeping comfortably in bed snoring. After waking the patient up she states her headache is still present. Patient was given 2 mg of morphine and Benadryl and was discharged home with supportive management. Differential diagnosis: Migraine headache, sinusitis, intracranial bleed There are no social concerns with this patient. Prescription drug management Prescriptions will include: None Medical management and examination interpretation discussions were had by me with other qualified healthcare professionals as indicated for the patient's care. ED Course Orders Procedure Category Date Status Time Ct Head/Brain W/O CT 10/23/24 Resulted Contrast 00:14 Morphine 2mg Syg PHA 10/23/24 Logged (Morphine 2mg Syg) 02:30 Diphenhydramine Hcl PHA 10/23/24 Logged (Benadryl Inj) 02:30 Vital Signs Date Time Temp Pulse Resp B/P (MAP) Pulse Ox O2 Delivery O2 Flow Rate FiO2 10/23/24 01:17 71 16 150/49 96 Room Air* 0 21 10/22/24 23:40 97.2 83 20 162/61 97 Room Air 0 DX & DISP Disposition: Discharge Departure Impression: Primary Impression: Headache, unspecified Condition: Stable Additional Instructions: Your CT scan of the head does not show any acute intracranial abnormalities. Please follow up with your primary care doctor for repeat evaluation. Referrals: ALECIA BALL MD (PCP) Time of Disposition: 02:29 I have reviewed the case, and I agree with, Diagnosis and Plan I performed the substantive portion of the visit. I have reviewed and personally made and approve the management plan that is documented in the note by myself or the CLAUDIA. I acknowledge for responsibility for the patient's managem ent plan. RICKEY BUCKLEY Oct 23, 2024 02:30
[2024-10-23 02:55] VITALS: BP 142/61; PULSE 69; RESP 16; O2SAT 96
[2024-10-23] MEDS: morPHINE 2 MG SYG IM ONE (03:03)
[2024-10-23] MEDS: DiphenhydrAMINE HCL 50 MG/ML VIAL IM ONE (03:03)
== END 2024-10-23 03:32 | disposition home or self-care (01) ==
LOC: EDH 23:38
DX: I12.0 Hypertensive chronic kidney disease with stage 5 chronic kidney disease or end stage renal disease (principal); E11.22 Type 2 diabetes mellitus with diabetic chronic kidney disease; N18.6 End stage renal disease; Z99.2 Dependence on renal dialysis; Z79.4 Long term (current) use of insulin; Z79.84 Long term (current) use of oral hypoglycemic drugs; Z79.899 Other long term (current) drug therapy; Z90.49 Acquired absence of other specified parts of digestive tract; Z98.890 Other specified postprocedural states
CPT/HCPCS: 99285; 70450; 96372 ×2; J1200; J2270